=== PATIENT | female | born 1995 | race Caucasian/White ===

== ENCOUNTER 2017-09-08 02:58 | Emergency (ER) | payer OTHER ==
[~2017-09-08] VITALS: Ht 172.7 cm; Wt 68.0 kg
[~2017-09-08 02:58] MED LIST: AMOX500 PO; ASPI325B PO; Macrobid 100 M100 MG PO; PROM25S PR; RXHYOS.125 PO
[2018-06-13] MEDS ORDERED: Verotin-Gr Cap1 EACH PO (13:47)
== END 2017-09-08 04:34 | disposition home or self-care (01) ==
LOC: ER 02:58
DX: Z00.8 Encounter for other general examination (principal); Z88.2 Allergy status to sulfonamides; F17.200 Nicotine dependence, unspecified, uncomplicated
CPT/HCPCS: 99282

== ENCOUNTER 2017-10-24 18:13 | Emergency (ER) | payer OTHER ==
[~2017-10-24] VITALS: Ht 172.7 cm; Wt 72.6 kg
[2018-06-13] MEDS ORDERED: Verotin-Gr Cap1 EACH PO (13:47)
== END 2017-10-24 20:12 | disposition home or self-care (01) ==
LOC: ER 18:13
DX: O9A.219 Injury, poisoning and certain other consequences of external causes complicating pregnancy, unspecified trimester (principal); S62.337A Displaced fracture of neck of fifth metacarpal bone, left hand, initial encounter for closed fracture; O99.330 Smoking (tobacco) complicating pregnancy, unspecified trimester; F17.200 Nicotine dependence, unspecified, uncomplicated; Z88.2 Allergy status to sulfonamides; W22.8XXA Striking against or struck by other objects, initial encounter
CPT/HCPCS: 29125; 73120; 81000; 81025; 99283

== ENCOUNTER → 2017-12-16 | Outpatient (CLI) | payer OTHER ==
[2018-01-04 10:08] LABS: CHLAMYDIA BY NAA Negative (Negative); GONOCOCCUS BY NAA Negative (Negative); TRICH VAG BY NAA Negative (Negative)
== END ==
LOC: LAB 15:31 → LAB SHORT 15:31
PROVIDERS: Obstetrics & Gynecology
DX: Z34.00 Encounter for supervision of normal first pregnancy, unspecified trimester (principal)
CPT/HCPCS: 87491; 87591; 87661; G0123

== ENCOUNTER → 2018-03-09 | Outpatient (CLI) | payer OTHER ==
[2018-03-09 18:21] LABS: U Amphetamine Screen DETECTED; U Barbituate Screen Not Detected; U Benzodiazapine Screen Not Detected; U Buprenorphine Screen Not Detected; U Cannabinoids Screen DETECTED; U Cocaine Screen Not Detected; U Methadone Screen Not Detected; U Methamphetamine Screen DETECTED; U Opiates Screen Not Detected; U Oxycodone Screen Not Detected; U Phencyclidine Screen Not Detected; U Propoxyphene Screen Not Detected
== END | disposition home or self-care (01) ==
LOC: LAB 16:47 → LAB SHORT 16:47
PROVIDERS: Obstetrics & Gynecology
DX: O99.320 Drug use complicating pregnancy, unspecified trimester (principal); F19.11 Other psychoactive substance abuse, in remission

== ENCOUNTER 2019-05-28 15:27 | Emergency (ER) | payer OTHER ==
[~2019-05-28] VITALS: Ht 172.7 cm; Wt 95.2 kg
[~2019-05-28 15:27] MED LIST changes: +Verotin-Gr Cap1 EACH PO
[2019-05-28] MEDS ORDERED: IBUP600 PO (16:13)
[2019-05-28] MEDS ORDERED: Flonase 0.05% N16 GM (16:13)
[2019-05-28] MEDS ORDERED: ROBITUSSIN COU237 ML PO (16:13)
[2019-05-28] MEDS ORDERED: Minipress1 MG PO (16:14)
[2019-05-28] MEDS ORDERED: Atarax10 MG PO (16:14)
[2019-05-28] MEDS ORDERED: Zoloft100 MG PO (16:14)
== END 2019-05-28 16:22 | disposition home or self-care (01) ==
LOC: ER 15:27
DX: J06.9 Acute upper respiratory infection, unspecified (principal); Z88.2 Allergy status to sulfonamides; Z91.048 Other nonmedicinal substance allergy status; F17.200 Nicotine dependence, unspecified, uncomplicated
CPT/HCPCS: 99283

== ENCOUNTER 2019-06-17 18:14 | Emergency (ER) | payer OTHER ==
[~2019-06-17] VITALS: Ht 172.7 cm; Wt 97.5 kg
[~2019-06-17 18:14] MED LIST changes: +Atarax10 MG PO; +Flonase 0.05% N16 GM; +IBUP600 PO; +Minipress1 MG PO; +ROBITUSSIN COU237 ML PO; +Zoloft100 MG PO
[2019-06-17] MEDS ORDERED: [UNRECOGNIZED DRUG - OTHER] (18:27)
[2019-06-17] MEDS ORDERED: CYCL10 PO (18:55)
== END 2019-06-17 19:00 | disposition home or self-care (01) ==
LOC: ER 18:14
DX: S46.911A Strain of unspecified muscle, fascia and tendon at shoulder and upper arm level, right arm, initial encounter (principal); R07.89 Other chest pain; F17.200 Nicotine dependence, unspecified, uncomplicated; Z79.899 Other long term (current) drug therapy; X58.XXXA Exposure to other specified factors, initial encounter
CPT/HCPCS: 71046; 96372; 99283-25; J1885

== ENCOUNTER → 2022-06-19 | Outpatient (CLI) | payer OTHER ==
[~2022-06-19] MED LIST changes: +CYCL10 PO; +[UNRECOGNIZED DRUG - OTHER]
[2022-06-19 16:14] LABS: Source, Urine Clean Catch
[2022-06-19 17:51] LABS: Bacteria Many /hpf; Squamous Epithelial Cells Mod /hpf (Few)
== END | disposition home or self-care (01) ==
LOC: LAB 14:35 → LAB SHORT 14:35
PROVIDERS: Obstetrics & Gynecology
DX: Z34.81 Encounter for supervision of other normal pregnancy, first trimester (principal)
CPT/HCPCS: 81015; 87086

== ENCOUNTER → 2022-07-17 | Outpatient (CLI) | payer OTHER ==
[2022-07-19 02:11] LABS: CHLAMYDIA TRACHOMATIS, NAA Negative (Negative)
== END | disposition home or self-care (01) ==
LOC: LAB SHORT 12:04
PROVIDERS: Advanced Practice Midwife
DX: Z01.419 Encounter for gynecological examination (general) (routine) without abnormal findings (principal); Z11.3 Encounter for screening for infections with a predominantly sexual mode of transmission
CPT/HCPCS: 87491; 87591; G0123

== ENCOUNTER → 2022-12-31 | Outpatient (CLI) | payer OTHER | END | disposition home or self-care (01) | LOC: LAB 09:48 → LAB SHORT 09:48 | DX: O09.892 Supervision of other high risk pregnancies, second trimester (principal) | CPT/HCPCS: 87081; 87150 ==

== ENCOUNTER 2023-01-19 21:31 | Inpatient (IN) | payer OTHER ==
[~2023-01-19] VITALS: Ht 172.7 cm; Wt 123.2 kg
[2023-01-19 22:21] LABS: BASOPHILS ABSOLUTE AUTO 0.03 K/mm3 (0.00-0.23); BASOPHILS PERCENT AUTO 0 % (0-2); EOSINOPHILS ABSOLUTE AUTO 0.04 K/mm3 (0.00-0.68); EOSINOPHILS PERCENT AUTO 0 % (0-6); Hematocrit 36.3 % (33.0-51.0); Hemoglobin 12.3 g/dL (11.5-16.0); IMMATURE GRAN ABSOLUTE AUTO 0.04 K/mm3 (0.00-0.10); IMMATURE GRAN PERCENT AUTO 0 % (0-1); LYMPHOCYTES ABSOLUTE AUTO 2.14 K/mm3 (0.84-5.20); LYMPHOCYTES PERCENT AUTO 20 % (21-46); MONOCYTES ABSOLUTE AUTO 0.75 K/mm3 (0.16-1.47); MONOCYTES PERCENT AUTO 7 % (4-13); Mean Corpuscular HGB 27.6 pg (26.0-34.0); Mean Corpuscular HGB Conc 33.9 g/dL (31.5-36.5); Mean Corpuscular Volume 81 fL (80-100); Mean Platelet Volume 10.8 fL (9.1-12.4); NEUTROPHILS ABSOLUTE AUTO 7.84 K/mm3 (1.96-9.15); NEUTROPHILS PERCENT AUTO 72 % (41-73); Platelet Count 191 K/mm3 (150-400); RDW Coefficient Variation 14.1 % (11.7-14.2); RDW Standard Deviation 40.8 fL (35.1-46.3); Red Blood Cell Count 4.46 M/mm3 (3.80-5.20); White Blood Cell Count 10.84 K/mm3 (4.00-11.30)
[2023-01-19] MEDS ORDERED: BUSP10 (22:26)
[2023-01-19] MEDS ORDERED: UNISOM PM PAIN1 EACH PO (22:26)
[2023-01-19] MEDS ORDERED: PRENATAL TABLE1 EAC2 PO (22:26)
[2023-01-19] MEDS ORDERED: CLOBETASOL 0.0560 GM (22:28)
[2023-01-19 22:42] VITALS: BP 128/82
[2023-01-20] VITALS (40 sets, daily range): BP systolic 87–131; BP diastolic 48–86
[2023-01-21 04:06] VITALS: BP 150/62
[2023-01-21 08:35] VITALS: BP 122/74
[2023-01-21 13:48] VITALS: BP 126/68
[2023-01-21 17:14] VITALS: BP 121/75
--- NOTE | 2023-01-21 17:45 | NUR ---
DISCHARGE DISCHARGE HOME STABLE. CARING FOR SELF AND BABY INDEPENDANTLY. NO QUESTIONS OR CONCERNS. VERBALIZE UNDERSTANDING OF DC INSTRUCTIONS AND FOLLOW UP APPOINTMENTS. VSS. AFEBRILE. LOCHIA SCANT. STABLE.
[2023-01-21] MEDS ORDERED: IBUP800 PO (17:55)
== END 2023-01-21 18:12 | disposition home or self-care (01) | DRG 807 ==
LOC: OBS 21:31 → BC 21:34 → OBS 21:40 → BC 21:41
PROVIDERS: ADMIT Obstetrics & Gynecology
PROC: 10E0XZZ Delivery of Products of Conception, External Approach (ICD-10-PCS; principal; 2023-01-20)
PROC: 0HQ9XZZ Repair Perineum Skin, External Approach (ICD-10-PCS; 2023-01-20)
PROC: 3E0R3BZ Introduction of Anesthetic Agent into Spinal Canal, Percutaneous Approach (ICD-10-PCS; 2023-01-20)
PROC: 00HU33Z Insertion of Infusion Device into Spinal Canal, Percutaneous Approach (ICD-10-PCS; 2023-01-20)
PROC: 10907ZC Drainage of Amniotic Fluid, Therapeutic from Products of Conception, Via Natural or Artificial Opening (ICD-10-PCS; 2023-01-20)
DX: O99.344 Other mental disorders complicating childbirth (principal); Z37.0 Single live birth; F43.12 Post-traumatic stress disorder, chronic; F41.8 Other specified anxiety disorders; O76 Abnormality in fetal heart rate and rhythm complicating labor and delivery; O99.214 Obesity complicating childbirth; O70.0 First degree perineal laceration during delivery; Z90.49 Acquired absence of other specified parts of digestive tract; Z87.891 Personal history of nicotine dependence; Z3A.39 39 weeks gestation of pregnancy; Z79.899 Other long term (current) drug therapy
CPT/HCPCS: 36415; 51702; 85025; 86850; 86900; 86901; 86923; A9270; J1885; J7120

== ENCOUNTER 2023-06-18 23:49 | Emergency (ER) | payer BC, OTHER ==
[~2023-06-18] VITALS: Ht 172.7 cm; Wt 122.5 kg
[~2023-06-18 23:49] MED LIST changes: +BUSP10; +CLOBETASOL 0.0560 GM; +IBUP800 PO; +PRENATAL TABLE1 EAC2 PO; +UNISOM PM PAIN1 EACH PO
[2023-06-19 01:40] LABS: Source, Urine Clean Catch
[2023-06-19 01:45] LABS: Bilirubin, Urine Neg (Neg); Blood, Urine Neg (Neg); Glucose Qualitative, Urine Neg (Neg); Ketones, Urine Neg (Neg); Leukocyte Esterase, Urine Neg (Neg); Nitrite, Urine Neg (Neg); Protein, Urine Neg (Neg); Specific Gravity, Urine 1.005 (1.003-1.022); Urobilinogen, Urine NORM (Normal)
[2023-06-19 01:50] LABS: Appearance, Urine Clear (Clear); Color, Urine Yellow (P-Yellow)
[2023-06-19 02:11] LABS: BASOPHILS ABSOLUTE AUTO 0.04 K/mm3 (0.00-0.23); BASOPHILS PERCENT AUTO 0 % (0-2); EOSINOPHILS ABSOLUTE AUTO 0.01 K/mm3 (0.00-0.68); EOSINOPHILS PERCENT AUTO 0 % (0-6); Hematocrit 40.9 % (33.0-51.0); Hemoglobin 13.8 g/dL (11.5-16.0); IMMATURE GRAN ABSOLUTE AUTO 0.03 K/mm3 (0.00-0.10); IMMATURE GRAN PERCENT AUTO 0 % (0-1); LYMPHOCYTES ABSOLUTE AUTO 1.46 K/mm3 (0.84-5.20); LYMPHOCYTES PERCENT AUTO 10 % (21-46); MONOCYTES ABSOLUTE AUTO 0.93 K/mm3 (0.16-1.47); MONOCYTES PERCENT AUTO 6 % (4-13); Mean Corpuscular HGB 26.8 pg (26.0-34.0); Mean Corpuscular HGB Conc 33.7 g/dL (31.5-36.5); Mean Corpuscular Volume 79 fL (80-100); Mean Platelet Volume 9.1 fL (9.1-12.4); NEUTROPHILS ABSOLUTE AUTO 12.55 K/mm3 (1.96-9.15); NEUTROPHILS PERCENT AUTO 84 % (41-73); Platelet Count 250 K/mm3 (150-400); RDW Coefficient Variation 13.1 % (11.7-14.2); RDW Standard Deviation 37.2 fL (35.1-46.3); Red Blood Cell Count 5.15 M/mm3 (3.80-5.20); White Blood Cell Count 15.02 K/mm3 (4.00-11.30)
[2023-06-19 02:21] LABS: Albumin, Blood 3.9 g/dL (3.4-5.0); Albumin/Globulin Ratio 1.1 (0.8-1.8); Bilirubin, Total 0.4 mg/dL (0.1-1.0); Bun/Creatinine Ratio 11.5 (12.0-20.0); Calcium, Blood 8.7 mg/dL (8.5-10.1); Creatinine, Blood 0.87 mg/dL (0.40-1.00); Globulin, Blood 3.4 g/dL (2.2-4.0); Potassium, Blood 3.6 mmol/L (3.5-5.5); Total Protein, Blood 7.3 g/dL (6.4-8.2)
[2023-06-19 03:11] VITALS: BP 124/74
== END 2023-06-19 03:22 | disposition home or self-care (01) ==
LOC: ER 23:49
PROVIDERS: Emergency Medicine
DX: R10.13 Epigastric pain (principal); J90 Pleural effusion, not elsewhere classified; Z79.899 Other long term (current) drug therapy; F43.10 Post-traumatic stress disorder, unspecified; F17.200 Nicotine dependence, unspecified, uncomplicated
CPT/HCPCS: 74177; 80053; 81003; 81025; 83690; 85025; 96374; 96375; 99284-25; A9270; J1885; J2405; Q9967

== ENCOUNTER 2023-12-18 19:21 | Emergency (ER) | payer BC, OTHER ==
[~2023-12-18] VITALS: Ht 172.7 cm; Wt 108.9 kg
[2023-12-18 19:47] VITALS: BP 148/108
[2023-12-18 20:17] LABS: Source, Urine Clean Catch
[2023-12-18 20:38] LABS: Albumin, Blood 3.5 g/dL (3.4-5.0); Bilirubin, Total 0.5 mg/dL (0.1-1.0); Bun/Creatinine Ratio 13.3 (12.0-20.0); Calcium, Blood 8.8 mg/dL (8.5-10.1); Creatinine, Blood 0.75 mg/dL (0.40-1.00); Globulin, Blood 3.4 g/dL (2.2-4.0); Potassium, Blood 3.5 mmol/L (3.5-5.5); Total Protein, Blood 6.9 g/dL (6.4-8.2)
[2023-12-18 20:48] LABS: Appearance, Urine Hazy (Clear); Bilirubin, Urine Neg (Neg); Blood, Urine Neg (Neg); Color, Urine Yellow (P-Yellow); Glucose Qualitative, Urine Neg (Neg); Ketones, Urine Neg (Neg); Leukocyte Esterase, Urine 2+ (Neg); Nitrite, Urine Neg (Neg); Protein, Urine 1+ (Neg); Urobilinogen, Urine NORM (Normal)
[2023-12-18 20:53] LABS: BASOPHILS ABSOLUTE AUTO 0.03 K/mm3 (0.00-0.23); BASOPHILS PERCENT AUTO 0 % (0-2); EOSINOPHILS ABSOLUTE AUTO 0.05 K/mm3 (0.00-0.68); EOSINOPHILS PERCENT AUTO 1 % (0-6); Hematocrit 41.4 % (33.0-51.0); Hemoglobin 14.2 g/dL (11.5-16.0); IMMATURE GRAN ABSOLUTE AUTO 0.02 K/mm3 (0.00-0.10); IMMATURE GRAN PERCENT AUTO 0 % (0-1); LYMPHOCYTES ABSOLUTE AUTO 2.65 K/mm3 (0.84-5.20); LYMPHOCYTES PERCENT AUTO 34 % (21-46); MONOCYTES ABSOLUTE AUTO 0.58 K/mm3 (0.16-1.47); MONOCYTES PERCENT AUTO 7 % (4-13); Mean Corpuscular HGB 27.5 pg (26.0-34.0); Mean Corpuscular HGB Conc 34.3 g/dL (31.5-36.5); Mean Corpuscular Volume 80 fL (80-100); Mean Platelet Volume 9.2 fL (9.1-12.4); NEUTROPHILS ABSOLUTE AUTO 4.48 K/mm3 (1.96-9.15); NEUTROPHILS PERCENT AUTO 57 % (41-73); Platelet Count 263 K/mm3 (150-400); RDW Coefficient Variation 13.2 % (11.7-14.2); RDW Standard Deviation 38.5 fL (35.1-46.3); Red Blood Cell Count 5.17 M/mm3 (3.80-5.20); White Blood Cell Count 7.81 K/mm3 (4.00-11.30)
[2023-12-18 21:05] LABS: Bacteria Many /hpf; Red Blood Cells, Urine 0-2 /hpf (0-2); Squamous Epithelial Cells Many /hpf (Few)
[2023-12-18] MEDS ORDERED: NS 1,000 ML IV SCH (22:20)
[2023-12-18] MEDS ORDERED: Metoclopramide HCl 5MG / ML 2ML Vial IV ONE (22:20)
[2023-12-18] MEDS ORDERED: Dicyclomine HCl 10 MG/ML 2ML Amp IM ONE (22:20)
[2023-12-18] MEDS ORDERED: DiphenhydrAMINE HCl 50 MG/ML 1ML Vial IV ONE (22:20)
[2023-12-18] MEDS ORDERED: DICY20 PO (23:28)
[2023-12-18] MEDS ORDERED: METO10 PO (23:28)
== END 2023-12-18 23:40 | disposition home or self-care (01) ==
LOC: ER 19:21
PROVIDERS: Nurse Practitioner
DX: K52.9 Noninfective gastroenteritis and colitis, unspecified (principal); Z79.899 Other long term (current) drug therapy; F43.10 Post-traumatic stress disorder, unspecified; F17.210 Nicotine dependence, cigarettes, uncomplicated
CPT/HCPCS: 80053; 81001; 81025; 83690; 85025; 87086; 96372-59; 96374; 96375; 99284-25; J0500; J1200; J2765; J7030

== ENCOUNTER → 2024-07-20 | Outpatient (CLI) | payer BC, OTHER ==
[~2024-07-20] MED LIST changes: +DICY20 PO; +METO10 PO; +ONDA4ODT MM; +PHENA200 PO
== END | disposition home or self-care (01) ==
LOC: LAB SHORT 13:26 → LAB 13:26
DX: N39.0 Urinary tract infection, site not specified (principal)
CPT/HCPCS: 87086

== ENCOUNTER → 2024-07-22 | Outpatient (CLI) | payer BC, OTHER | LOC: LAB SHORT 16:46 → LAB 16:46 | DX: R82.998 Other abnormal findings in urine (principal) | CPT/HCPCS: 87086 ==

== ENCOUNTER 2024-07-23 18:22 | Emergency (ER) | payer BC, OTHER ==
[~2024-07-23] VITALS: Ht 172.7 cm; Wt 104.3 kg
[~2024-07-23 18:22] MED LIST changes: -ONDA4ODT MM; -PHENA200 PO
[2024-07-23 18:24] VITALS: BP 140/97
[2024-07-23 18:50] LABS: BASOPHILS ABSOLUTE AUTO 0.04 K/mm3 (0.00-0.23); BASOPHILS PERCENT AUTO 0 % (0-2); EOSINOPHILS ABSOLUTE AUTO 0.04 K/mm3 (0.00-0.68); EOSINOPHILS PERCENT AUTO 0 % (0-6); Hematocrit 39.8 % (33.0-51.0); Hemoglobin 13.9 g/dL (11.5-16.0); IMMATURE GRAN ABSOLUTE AUTO 0.02 K/mm3 (0.00-0.10); IMMATURE GRAN PERCENT AUTO 0 % (0-1); LYMPHOCYTES ABSOLUTE AUTO 2.63 K/mm3 (0.84-5.20); LYMPHOCYTES PERCENT AUTO 30 % (21-46); MONOCYTES ABSOLUTE AUTO 0.49 K/mm3 (0.16-1.47); MONOCYTES PERCENT AUTO 6 % (4-13); Mean Corpuscular HGB 27.8 pg (26.0-34.0); Mean Corpuscular HGB Conc 34.9 g/dL (31.5-36.5); Mean Corpuscular Volume 80 fL (80-100); Mean Platelet Volume 8.7 fL (9.1-12.4); NEUTROPHILS PERCENT AUTO 64 % (41-73); Platelet Count 319 K/mm3 (150-400); RDW Coefficient Variation 12.4 % (11.7-14.2); RDW Standard Deviation 35.6 fL (35.1-46.3); White Blood Cell Count 8.92 K/mm3 (4.00-11.30)
[2024-07-23 18:53] LABS: Source, Urine Clean Catch
[2024-07-23 19:05] LABS: Appearance, Urine Hazy (Clear); Bilirubin, Urine Neg (Neg); Blood, Urine Neg (Neg); Glucose Qualitative, Urine Neg (Neg); Ketones, Urine Neg (Neg); Leukocyte Esterase, Urine 3+ (Neg); Nitrite, Urine Neg (Neg); Protein, Urine Neg (Neg); Urobilinogen, Urine NORM (Normal)
[2024-07-23 19:09] LABS: Albumin, Blood 3.7 g/dL (3.4-5.0); Bilirubin, Total 0.3 mg/dL (0.1-1.0); Bun/Creatinine Ratio 13.1 (12.0-20.0); Calcium, Blood 9.5 mg/dL (8.5-10.1); Creatinine, Blood 0.76 mg/dL (0.40-1.00); Globulin, Blood 3.6 g/dL (2.2-4.0); Potassium, Blood 3.8 mmol/L (3.5-5.5); Total Protein, Blood 7.3 g/dL (6.4-8.2)
[2024-07-23 19:20] LABS: Color, Urine Pale Yellow (P-Yellow)
[2024-07-23 19:22] LABS: Red Blood Cells, Urine 0-2 /hpf (0-2)
[2024-07-23 19:23] LABS: Amorphous Light (0-Heavy); Bacteria Many /hpf; Squamous Epithelial Cells Mod /hpf (Few); Transitional Epithelial Cells Few /hpf (0-Rare)
[2024-07-23] MEDS ORDERED: Ondansetron HCl 2 MG / ML 2ML Vial IV ONE (19:30)
[2024-07-23] MEDS ORDERED: Ketorolac Tromethamine 15mg Vial IV ONE (19:30)
[2024-07-23] MEDS ORDERED: Lactated Ringer's 1,000 ML IV ONE (19:30)
[2024-07-23] MEDS ORDERED: PHENA200 PO (20:13)
[2024-07-23] MEDS ORDERED: ONDA4ODT MM (20:13)
[2024-07-23] MEDS ORDERED: RX Prepack 2 Tabs Ondansetron ODT 4MG UD ONE (20:15)
== END 2024-07-23 20:25 | disposition home or self-care (01) ==
LOC: ER 18:22
PROVIDERS: Student in an Organized Health Care Education/Training Program
DX: N30.01 Acute cystitis with hematuria (principal); F17.200 Nicotine dependence, unspecified, uncomplicated; Z79.899 Other long term (current) drug therapy
CPT/HCPCS: 80053; 81001; 83690; 84703; 85025; 87086; 96361; 96374; 96375; 99284-25; A9270; J1885; J2405; J7120

== ENCOUNTER 2025-06-27 08:24 | Emergency (ER) | payer BC ==
[~2025-06-27] VITALS: Ht 172.7 cm; Wt 113.4 kg
[~2025-06-27 08:24] MED LIST changes: +ONDA4ODT MM; +PHENA200 PO
[2025-06-27 08:34] VITALS: BP 127/77
[2025-06-27] MEDS ORDERED: OxyCODONE 5 mg/Acetamin 325 mg TABLET PO ONE (08:40)
[2025-06-27] MEDS ORDERED: Methyl Salicylate/Menth/Camph 57 GM TUBE TOP ONE (08:40)
[2025-06-27] MEDS ORDERED: Ketorolac Tromethamine 30mg Vial IM ONE (08:40)
[2025-06-27] MEDS ORDERED: Robaxin750 MG PO (11:23)
[2025-06-27] MEDS ORDERED: IBUP800 PO (11:23)
[2025-06-27] MEDS ORDERED: LIDO700A20 TOP (11:23)
== END 2025-06-27 11:35 | disposition home or self-care (01) ==
LOC: ER 08:24
DX: M54.16 Radiculopathy, lumbar region (principal); F17.200 Nicotine dependence, unspecified, uncomplicated; Z79.899 Other long term (current) drug therapy
CPT/HCPCS: 96372; 99283-25; A9270; J1885